=== PATIENT | female | born 2000 | race Caucasian/White ===

== ENCOUNTER 2022-08-12 21:22 | Emergency (ER) | payer BC ==
[2022-08-12 22:25] LABS: Bilirubin Neg (Negative); Blood, Urine 25 (Negative); Clarity Clear (Clear); Glucose, Urine (Dipstick) Normal (Negative); Ketone, Urine Negative (Negative); Leukocyte Negative (Negative); Nitrite Positive (Negative); Protein, Urine (Dipstick) Negative (Neg-Trace); Specific Gravity, Urine 1.005 (1.005-1.030); Urobilinogen Normal mg/dL (Less than 2)
[2022-08-12 22:27] LABS: Pregnancy Test - Urine (BHCG) Negative (Negative); Pregu Control Background? CLEAR/WHITE (CLR/WHITE); Pregu Control Bar Appear? YES (CONTROL BAR); Specific Gravity 1.005 (1.002-1.036)
[2022-08-12 22:33] LABS: Hemoglobin 11.6 g/dL (12.0-15.5); Mean Corpuscular HGB CONC 33.7 g/dL (32.0-36.0); Mean Corpuscular Volume 88.9 fl (81.6-98.3); Mean Platelet Volume 9.7 fl (7.4-10.4); Platelet Count 135 10x3/uL (150-450); RBC Distribution Width 12.5 % (11.5-14.5); Red Blood Cell (RBC) Count 3.87 10x6/uL (3.90-5.03)
[2022-08-12 22:34] LABS: MDiff Complete? YES
[2022-08-12 22:38] LABS: ALT (SGPT) 193 U/L (8-55); AST (SGOT) 363 U/L (5-34); Alkaline Phosphatase 202 U/L (40-100); Anion Gap 13 mmol/L (10-20); BUN (Urea Nitrogen) 12 mg/dL (7.0-18.7); Bilirubin, Total 0.6 mg/dL (0.2-1.2); Calc. Creatinine Clearance 0 mL/min (70-130); Calcium 8.9 mg/dL (7.8-10.44); Carbon Dioxide 23 mmol/L (22-29); Chloride 104 mmol/L (98-107); Estimated GFR 96; Globulin 2.9 g/dL (2.4-3.5); Glucose 92 mg/dL (70-105); Lipase 27 U/L (8-78); Potassium 4.2 mmol/L (3.5-5.1); Protein, Total 6.9 g/dL (6.0-8.3); Sodium 136 mmol/L (136-145)
[2022-08-12 22:47] LABS: Bacteria/HPF 2+ HPF (None Seen); RBC/HPF 0-3 HPF (0-3); Squamous Epithelial 0-3 HPF (0-3)
[2022-08-12 22:59] LABS: SARS-CoV-2 NAA Rapid Test Not Detected (NotDetected)
[2022-08-12 23:06] LABS: Band 4 % (5-11); Lymphocytes 53 % (28-48); Monocytes 7 % (0-4); Neutrophil 36 % (31-61)
[2022-08-12 23:09] LABS: Platelet Morphology Comment Appears Decreased; RBC Morphology Normal
[2022-08-12] MEDS ORDERED: Ondansetron PF 4 MG/2 ML Vial ONE (23:51)
[2022-08-13] MEDS ORDERED: Amoxicillin/Potassium Clav 875 MG TAB ONE (03:14)
== END 2022-08-13 03:24 | disposition home or self-care (01) ==
LOC: CSHERS 21:22
DX: N12 Tubulo-interstitial nephritis, not specified as acute or chronic (principal); R07.2 Precordial pain
CPT/HCPCS: 36415; 71045; 71275; 74177; 80053; 81003; 81015; 81025; 83690; 85025; 85379; 93005; 96374; J2405